=== PATIENT | female | born 1990 | race Caucasian/White ===

== ENCOUNTER 2017-01-23 17:09 | Emergency (ER) | payer OTHER ==
[~2017-01-23] VITALS: Ht 154.9 cm; Wt 75.0 kg
--- NOTE | ~2017-01-23 | US134 ---
[facility] A Service of [facility] RADIOLOGY TEXT RESULTS PATIENT: YVONNE LARSEN LOCATION: SED : 89 UNIT #: [id number] AGE: [address]: Gurmeet Mejía MD SEX: F ORDER DR: [id number] [address] [address] [id number] E MR#: [id number] Acc #: [id number] NAME: YVONNE LARSEN : 1990 SEX: F STUDY DATE/TIME: 01/23/2017 19:23 UNIT: SED ROOM: STUDY DESCRIPTION: Transvaginal Attending Physician: Gurmeet Mejía M.D. Ordering Physician: Rachid Truong M.D. Primary Care Physician: No Primary Care Physician MEDICAL IMAGING REPORT This report is preliminary unless electronic signature is present. EXAM Transvaginal pelvic ultrasound. Date: 01/23/2017. HISTORY 26-year-old female with pelvic cramping today. Body pains for 3 days. No bleeding. Quantitative beta HCG not collected. Last menstrual period 10/17/2016. FINDINGS Transvaginal imaging only was performed. A single intrauterine is demonstrated. biometric measurements including femur length, head circumference, biparietal diameter and abdominal circumference correspond to a 85-rdnb-9-day estimated gestational age with estimated sonographic date of delivery 07/30/2017. There is detectable heart rate in the range of 157 beats per minute. The study is not performed for detailed anatomic survey, but no gross abnormalities are identified. No subchorionic hemorrhage is seen. No pelvic free fluid is evident. The cervix is closed. Neither right nor left ovary are visualized on this exam. Placenta appears to be an anterior lie. movement was detected during the exam. IMPRESSION 1. Single viable intrauterine with a heart rate range of 157 beats per minute. Estimated sonographic gestational age 13 weeks 1 day with estimated date delivery 07/30/2017. 2. No acute findings. 3. Continued clinical followup is recommended. [facility] A Service [facility] RADIOLOGY TEXT RESULTS PATIENT: YVONNE LARSEN LOCATION: [facility] : [birth year] UNIT #: [id number] AGE: [address]: Gurmeet Mejía MD SEX: F ORDER DR: Dictated by... Denise Nagel M.D. THIS IS AN ELECTRONICALLY VERIFIED REPORT Denise Nagel M.D. at 01/25/2017 9:52 AM LLH/carlos TD: 01/24/2017 13:50 JOB #: [id number] MEDICAL IMAGING REPORT Page 1 of 1
[~2017-01-23 17:09] MED LIST: BENTYL20 M1 PO; CIPRO PO; KEFLEX500 M1 PO; LORTAB 5/500 TA1 TA1 PO; MACROBID 100 M100 MG PO; MOTRIN PO; MOTRIN400 MG PO; NAPROXEN PO; NO MEDICATIONS; PERCOCET 5/321 UDTAB PO; PERCOCET5/325 PO; PHENERGAN25 M1 PO; PHENERGAN25 MG PO; PR NATAL 400 C1 EACH; PRINCIPEN500 M1 PO; VIBRAMYCIN100 M1 PO; VICODIN 5/1 TAB 5/50 PO; ZOFRAN ODT4 MG PO; ZOFRAN PO
[2017-01-23 18:31] LABS: URINE SOURCE CLEAN CATCH
[2017-01-23 18:34] LABS: URINE APPEARANCE HAZY; URINE BILIRUBIN NEG (NEG); URINE BLOOD NEG (NEG); URINE COLOR YELLOW; URINE GLUCOSE NEG (NORM); URINE KETONE NEG (NEG); URINE LEUKOCYTE ESTERASE NEG (NEG); URINE NITRATE NEG (NEG); URINE PROTEIN NEG (NEG); URINE SPECIFIC GRAVITY 1.015 (1.003-1.035); URINE UROBILINOGEN 0.2 MG/DL (NORM)
[2017-01-23 18:35] LABS: MICRO INDICATED? NO
[2017-01-23 19:15] LABS: BASOPHIL# 0.1 X10e3 (0-0.3); BASOPHIL% 0.5 % (0-2.5); EOSINOPHIL# 0.1 X10e3 (0-0.7); HEMATOCRIT 36.4 % (35.0-45.0); HEMOGLOBIN 12.5 gm/dL (12.0-16.0); LYMPHOCYTE# 2.3 X10e3 (1.0-3.5); LYMPHOCYTE% 19.2 % (17.0-45.0); MEAN CELL VOLUME 87.7 FL (83-96); MEAN CORPUSCULAR HEMOGLOBIN 30.3 PG (28-34); MEAN CORPUSCULAR HGB CONC 34.5 g/dL (30-36); MEAN PLATELET VOLUME 7.6 FL (6.5-11.5); MONOCYTE# 0.6 X10e3 (0-1.0); MONOCYTE% 5.2 % (3.0-12.0); NEUTROPHIL% 74.1 % (40-75); PLATELET COUNT 324 X10e3 (140-420); RED BLOOD COUNT 4.14 X10e (3.90-5.30); RED CELL DISTRIBUTION WIDTH 12.9 % (11.0-15.5); WHITE BLOOD COUNT 12.1 X10e3 (4.0-10.5)
[2017-01-23 19:19] LABS: DIFF IND NO
== END 2017-01-23 21:27 | disposition home or self-care (01) ==
LOC: SED 17:09
PROVIDERS: Emergency Medicine
DX: O99.89 Other specified diseases and conditions complicating pregnancy, childbirth and the puerperium (principal); R10.2 Pelvic and perineal pain; Z3A.13 13 weeks gestation of pregnancy; Z87.891 Personal history of nicotine dependence
CPT/HCPCS: 36415; 76830; 81003; 84702; 85025; 99284